=== PATIENT | female | born 1985 | race Caucasian/White ===

== ENCOUNTER → 2016-06-15 | Outpatient (CLI) | payer MEDICAID ==
--- NOTE | 2016-06-06 14:45 | US ---
EXAMINATION TYPE: US OB >= 14 wk fetus DATE OF EXAM: 06/06/2016 2:31 PM COMPARISON: Previous study dated 02/25/2014. HISTORY: LGA TECHNIQUE: Transabdominal (TA) EXAM MEASUREMENTS: GESTATIONAL AGE / DATING Physician Established: (36 weeks/0 days) EDC: 07/04/16 Dates by LMP: (36 weeks/0 days) EDC: 07/04/16 Dates by First Scan: (36 weeks/6 days) EDC: 06/28/16 Dates by Current Scan for: (36 weeks/3 days) EDC: 07/01/16 SURVEY IUP: Single PLACENTA: Anterior PREVIA: No previa NAVIN: 15.6 cm Normal CERVICAL LENGTH (transabdominal: norm > 3.0cm): 4.7 cm BIOMETRY PRESENTATION: Vertex LIE: Longitudinal BPD: 8.9 cm 36 weeks / 1 days HC: 32.0 cm 36 weeks / 1 days AC: 32.6 cm 36 weeks / 4 days FL: 7.1 cm 36 weeks / 3 days ESTIMATED WEIGHT IN GRAMS: 2921 grams ESTIMATED WEIGHT IN LBS/OZS: 6 lbs. 7 oz. WEIGHT PERCENTAGE BASED ON ESTABLISHED DATE: 62 % HC/AC: 0.98 Normal FL/AC: 22% Normal HEART RATE: 134 bpm RHYTHM: Normal TECHNOLOGIST IMPRESSION: Single viable IUP 36wks/3days with RAFITA of 07/01/16 No anatomic survey was performed. IMPRESSION: Gomez fetus present in a vertex lie with a gestational age of 36 weeks 3 days +/- 3 weeks. Estim ated date of confinement based on this examination is 07/01/2016.
--- NOTE | 2016-06-16 08:50 | US ---
EXAMINATION TYPE: US OB Call Back DATE OF EXAM: 06/15/2016 1:34 PM COMPARISON: prior scans in pacs, last one 1 week ago CLINICAL HISTORY: o36.63xo LGA. Here to look at anatomy only, no complaints per pt GESTATIONAL AGE / DATING Dates by Initial Survey Scan: (37 weeks/5 days) EDC: 07/01/2016 HEART RATE: 126 bpm RHYTHM: Normal ANATOMY SEEN (second anatomic survey look): Choroid Plexus (bilateral): Midline Falx: Four Chamber Heart: Outflow tracts:? LVOT/RVOT Stomach: Situs: Nose / Lips: Diaphragm : Kidneys (bilateral): Bladder: Three Vessel Cord: Longitudinal Spine: Transverse Spine: ANATOMY STILL NOT SEEN: due to advanced age and lie Lateral Vent (< 1 cm): Cisterna Magna (< 1.1 cm): Cerebellum: Cord Insert : Arms (bilateral): Legs (bilateral): Cavus Septi Pellucidi: TECHNOLOGIST IMPRESSION: some exam limitations due to advanced age and lie, visualized structu res appear wnl IMPRESSION: Gomez fetus present in a vertex lie with a gestational age of 37 weeks 5 days +/- 3 weeks. Estima paolo date of confinement based on this examination is 07/01/2016. Please note that the morphologic examination is still limited.
== END | disposition home or self-care (01) ==
LOC: RADUSWWP 06-06 13:32
PROVIDERS: ATTEND Obstetrics & Gynecology
DX: O36.63X0 Maternal care for excessive fetal growth, third trimester, not applicable or unspecified (principal); Z3A.36 36 weeks gestation of pregnancy
CPT/HCPCS: 76805

== ENCOUNTER 2016-06-29 08:23 | Inpatient (IN) | payer MEDICAID ==
[2016-06-29] MEDS ORDERED: TERBUTALINE 1 MG/ML VIAL SQ PRN (10:22)
[2016-06-29] MEDS ORDERED: OXYTOCIN 10 UNIT/ML 1 ML VIAL IM PRN (10:22)
[2016-06-29] MEDS ORDERED: LIDOCAINE 1% (PF) 10 MG/ML (30 ML SDV) SQ PRN (10:22)
[2016-06-29] MEDS ORDERED: CARBOPROST TROMETHAMINE 250 MCG/ML 1 ML AMP IM PRN (10:22)
[2016-06-29] MEDS ORDERED: METHYLERGONOVINE 0.2 MG/ML 1 ML AMP IM PRN (10:22)
[2016-06-29] MEDS ORDERED: LACTATED RINGERS 1,000 ML IV SCH ×2 (10:30)
[2016-06-29] MEDS ORDERED: OXYTOCIN 30 UNITS/500 ML NS 30 UNIT in SALINE 1 500ML.BAG IV SCH (10:30)
[2016-06-29 11:04] VITALS: BMI 26.9
[2016-06-29 11:18] LABS: Basophils # (A) 0.1 k/uL (0-0.2); Basophils % (A) 1 %; CH 32.3; CHCM 34.8; Eosinophils # (A) 0.2 k/uL (0-0.7); Eosinophils % (A) 2 %; HCT 36.2 % (34.0-46.0); HDW 2.92; HGB 12.8 gm/dL (11.4-16.0); Luc # (Auto) 0.25; Luc % (Auto) 3; Lymphocytes # (A) 1.4 k/uL (1.0-4.8); Lymphocytes % (A) 16 %; MCH 32.9 pg (25.0-35.0); MCHC 35.3 g/dL (31.0-37.0); MCV 93.2 fL (80.0-100.0); Mean Platelet Volume 9.7; Monocytes # (A) 0.4 k/uL (0-1.0); Monocytes % (A) 5 %; Neutrophils # (A) 6.4 k/uL (1.3-7.7); Neutrophils % (A) 74 %; RBC 3.88 m/uL (3.80-5.40); RDW 12.9 % (11.5-15.5); WBC 8.7 k/uL (3.8-10.6); WBC (Perox) 8.84
--- NOTE | 2016-06-29 12:17 | P.HPOB ---
History of Present Illness H&P Date: 06/29/16 Chief Complaint: Leaking of fluid. This patient is a pleasant 30-year-old 4 para 2 female estimated date of confinement 07/04/2016 estimated gestational age 39-2/7 weeks who presents to labor and delivery with complaint of gush of fluid at 6:30 this morning and contractions thereafter. Patient's care has been uncomplicated. Review of Systems Constitutional: Denies chills, Denies fever Ears, nose, mouth and throat: Denies headache, Denies sore throat Cardiovascular: Denies chest pain, Denies shortness of breath Respiratory: Denies cough Gastrointestinal: Reports heartburn Genitourinary: Reports Menstruation: Reports amenorrhea Musculoskeletal: Denies myalgias Integumentary: Denies pruritus, Denies rash Neurological: Denies numbness, Denies weakness Psychiatric: Denies anxiety, Denies depression Endocrine: Denies fatigue, Denies weight change Past Medical History Past Medical History: Mitral Valve Prolapse (MVP) History of Any Multi-Drug Resistant Organisms: None Reported Additional Past Surgical History / Comment(s): Sarah Ann teeth 2010, dilation and curettage. Past Anesthesia/Blood Transfusion Reactions: No Reported Reaction Past Psychological History: No Psychological Hx Reported Smoking Status: Never smoker Past Alcohol Use History: None Reported Past Drug Use History: None Reported - Past Family History Father Family Medical History: Hypertension Mother Family Medical History: Thyroid Disorder Medications and Allergies Home Medications Medication Instructions Recorded Confirmed Type Pnv #14/Ferrous Fum/Folic Acid 1 tab PO DAILY 12/11/15 12/11/15 History [Completenate Tablet Chew] Calcium Carbonate [Tums] 500 mg PO TID 06/29/16 06/29/16 History Allergies Allergy/AdvReac Type Severity Reaction Status Date / Time iodine Allergy Anaphylaxis Verified 12/11/15 10:00 shellfish derived [Shellfish] Allergy Anaphylaxis Verified 12/11/15 10:00 Exam - Vital Signs Vital signs: Vital Signs Temp Pulse Resp BP Pulse Ox 06/29/16 08:55 98.2 F 98 18 117/81 98 Intake and Output 06/28/16 06/29/16 06/29/16 22:59 06:59 14:59 Other: Weight 75.75 kg Patient Weight 06/30/16 06:59 Weight 75.75 kg - OBG Physical Exam Abdomen: bowel sounds normal, no diffuse tenderness, no bruit present, no guarding noted, no hepatomegaly, no splenomegaly, no mass Vulva: both: normal Cervix: no lesion (Cervix is 3-4 cm 80% effaced and -1 station with gross rupture membranes), no discharge Uterus: enlarged (Fundal height is 39 cm) Results blood work shows she is O-, rubella immune, RPR is nonreactive, HIV is nonreactive, hepatitis B is negative, Glucola was normal, group B strep was negative, ultrasounds have been normal, patient received RhoGAM on 04/08/2016. Result Diagrams: 06/29/16 09:00 Assessment and Plan (1) Spontaneous rupture of membranes Status: Acute (2) Normal labor Narrative/Plan: This is a pleasant 30-year-old 4 para 2 female 39-2/7 weeks gestation with spontaneous rupture membranes in active labor. Plan is anticipate normal spontaneous vaginal delivery. Status: Acute (3) Rh negative, maternal Status: Acute
[2016-06-29] MEDS ORDERED: Acetaminophen-Codeine 300-30mg TAB PO PRN ×2 (14:38)
[2016-06-29] MEDS ORDERED: Rhogam IMMUNE GLOBULIN 1,500 UNIT/1 ML IM ONE (14:38)
[2016-06-29] MEDS ORDERED: HYDROCORTISONE 2.5% RECTAL CREAM 30 GM TUBE RECTAL PRN (14:38)
[2016-06-29] MEDS ORDERED: ZOLPIDEM 5 MG TAB PO PRN (14:38)
[2016-06-29] MEDS ORDERED: BENZOCAINE/MENTHOL SPRAY 1 GM/SPRAY AEROSOL TOPICAL PRN (14:38)
[2016-06-29] MEDS ORDERED: WITCH HAZEL 1 EACH MED..PAD TOPICAL PRN (14:38)
[2016-06-29] MEDS ORDERED: diphenhydrAMINE 50 MG/ML 1 ML VIAL IVP PRN (14:38)
[2016-06-29] MEDS ORDERED: BISACODYL 10 MG SUPP RECTAL PRN (14:38)
[2016-06-29] MEDS ORDERED: SIMETHICONE 80 MG CHEWABLE PO PRN (14:38)
[2016-06-29] MEDS ORDERED: diphenhydrAMINE 25 MG CAP PO PRN (14:38)
[2016-06-29] MEDS ORDERED: LANOLIN CREAM 5 GM TUBE TOPICAL PRN (14:38)
[2016-06-29] MEDS ORDERED: ACETAMINOPHEN TAB 325 MG TAB PO PRN (14:38)
--- NOTE | 2016-06-29 17:47 | P.PROBDLV ---
Vaginal Delivery Note - . Vaginal Delivery Note: Normal spontaneous vaginal delivery viable female infant Apgars 9 and 9 delivery time is 1358 hrs. Please see dictated H&P for intimate details of this patient's admission. Brief summary this is a pleasant 30-year-old 4 para 2 female 39-2/7 weeks gestation who is admitted to labor and delivery in spontaneous rupture membranes in active laborpatient has not received anything for pain control quickly progresses to complete. Patient pushes the head to the perineum the posterior perineum is supported and we have controlled delivery of the 's head over the intact perineum. Mouth and nares are bulb suctioned. There was a hand presenting with the posterior shoulder with gentle downward traction we have delivery the anterior posterior shoulder and rest this infant' s body. This is a vigorous viable female infant Apgars are 9 and 9 delivery time is 1358 hrs. has spontaneous respiration and good cry and grossly appears normal. After delivery of the the umbilical cords doubly clamped and cut appears to be trivascular. Placenta spontaneously delivered intact. Estimated blood loss is 100 mL. Posterior perineum shows a first- degree laceration that is repaired with 3-0 Vicryl in the usual fashion in good reapproximation is noted. No complications. and mother are stable in delivery room. Cord blood was obtained for Rh status.
[2016-06-29] MEDS: IBUPROFEN 600 MG TAB PO PRN (19:40)
[2016-06-29] MEDS: SENNOSIDES-DOCUSATE SODIUM 1 EACH TAB PO SCH (19:40)
[2016-06-29] MEDS: OXYTOCIN 30 UNITS/500 ML NS 30 UNIT in SALINE 1 500ML.BAG IV SCH (19:55)
[2016-06-30 01:41] VITALS: RESP 16
--- NOTE | 2016-06-30 06:01 | P.PNOBGVD ---
Subjective - Subjective Patient reports: Reports appetite normal, Reports voiding normally, Reports pain well controlled, Reports ambulating normally : doing well Objective - Latest Vital Signs Latest vital signs: Vital Signs Temp Pulse Resp BP Pulse Ox 06/30/16 04:00 97.9 F 79 16 110/70 06/30/16 00:00 97.1 F L 71 16 101/67 06/29/16 19:50 98.4 F 82 14 125/81 06/29/16 16:09 98.6 F 82 16 128/74 06/29/16 15:39 98.7 F 86 16 120/60 06/29/16 15:09 97.9 F 75 16 122/65 06/29/16 14:54 93 40 H 129/72 06/29/16 14:39 77 18 126/77 06/29/16 14:25 94 18 124/78 06/29/16 14:10 97.6 F 81 18 118/56 06/29/16 08:55 98.2 F 98 18 117/81 98 Intake and Output 06/29/16 06/29/16 06/30/16 14:59 22:59 06:59 Intake Total 370 Output Total 100 Balance 270 Intake: IV 120 Intake, IV Titration 250 Amount Oxytocin 30 Units/500 ml 250 Ns 30 unit In Saline 1 500ml.bag @ 120 MILLIUNIT /MIN 120 mls/hr IV . Q4H10M [facility] Rx#:[id number] Output: Estimated Blood Loss 100 Other: # Voids 1 1 Weight 75.75 kg Patient Weight 06/30/16 06:59 Weight 75.75 kg - Exam Lungs: bilateral: normal Chest: Normal S1, Normal S2 Extremities: Present: normal Abdomen: Present: normal appearance, soft Uterus: Present: normal, firm Assessment and Plan (1) Spontaneous rupture of membranes Narrative/Plan: day #1. Patient is resting without complaints. Vital signs are stable she is afebrile. Is firm nontender she's having normal lochia. My impression is a normal course. Plan is to continue routine care patient wishes to go home tomorrow. Current Visit: No Status: Acute Code(s): WDX3921 - SNOMED Code(s): 986258949 (2) Normal labor Current Visit: Yes Status: Acute Code(s): O80 - ENCOUNTER FOR FULL-TERM UNCOMPLICATED DELIVERY; Z37.9 - OUTCOME OF DELIVERY, UNSPECIFIED SNOMED Code(s ): 61930510 (3) Rh negative, maternal Current Visit: No Status: Acute Code(s): O09.899 - SUPERVISION OF OTHER HIGH RISK PREGNANCIES, UNSP TRIMESTER SNOMED Code(s): 334506843
[2016-06-30] MEDS: IBUPROFEN 600 MG TAB PO PRN ×2 (06:04→19:23)
[2016-06-30] MEDS: SENNOSIDES-DOCUSATE SODIUM 1 EACH TAB PO SCH ×2 (12:45→19:23)
--- NOTE | 2016-07-01 05:52 | P.PNOBGVD ---
Subjective - Subjective Patient reports: Reports appetite normal, Reports voiding normally, Reports pain well controlled, Reports ambulating normally : doing well Objective - Latest Vital Signs Latest vital signs: Vital Signs Temp Pulse Resp BP 07/01/16 00:00 98.1 F 72 16 100/66 06/30/16 15:52 98.2 F 81 16 134/80 06/30/16 08:00 98.1 F 78 16 120/70 - Exam Lungs: bilateral: normal Chest: Normal S1, Normal S2 Extremities: Present: normal Abdomen: Present: normal appearance, soft Uterus: Present: normal, firm Assessment and Plan (1) Spontaneous rupture of membranes Narrative/Plan: day #2. Patient is resting without complaints. Vital signs are stable she is afebrile. Uterus is firm nontender she's having normal lochia. My impression is a normal course. Plan is to continue routine care and discharge home today Current Visit: No Status: Acute Code(s): ATY6945 - SNOMED Code(s): 632835253 (2) Normal labor Current Visit: Yes Status: Acute Code(s): O80 - ENCOUNTER FOR FULL-TERM UNCOMPLICATED DELIVERY; Z37.9 - OUTCOME OF DELIVERY, UNSPECIFIED SNOMED Code(s ): 46788597 (3) Rh negative, maternal Current Visit: No Status: Acute Code(s): O09.899 - SUPERVISION OF OTHER HIGH RISK PREGNANCIES, UNSP TRIMESTER SNOMED Code(s): 782324135
--- NOTE | 2016-07-01 05:56 | P.DS ---
Providers Date of admission: 06/29/16 08:23 Expected date of discharge: 07/01/16 Attending physician: Raghav Kennedy - Discharge Diagnosis(es) (1) Spontaneous rupture of membranes Current Visit: No Status: Acute (2) Normal labor Current Visit: Yes Status: Acute (3) Rh negative, maternal Current Visit: No Status: Acute Hospital Course: Please see dictated H&P for intimate details of this patient's admission. Brief summary this is a pleasant 30-year-old 4 para 2 female 39-2/7 weeks gestation who presents to labor and delivery spontaneous rupture membranes in active labor. Patient quickly goes on have a vaginal delivery viable female infant. Please see dictated delivery note. day #2 she is felt be stable for discharge home follow up with me in 6 weeks. Procedures: Normal spontaneous vaginal delivery Patient Condition at Discharge: Good Plan - Discharge Summary New Discharge Prescriptions: Acetaminophen-Codeine 300-30mg [Tylenol w/codeine #3] 1 - 2 each PO Q4HR PRN # 30 tab PRN Reason: Mild Pain exceeding Tylenol Ibuprofen [Motrin] 600 mg PO Q6HR PRN #40 tab PRN Reason: Mild Pain Or Fever >= 100.5 Discharge Medication List Pnv #14/Ferrous Fum/Folic Acid [Completenate Tablet Chew] 1 tab PO DAILY [History] Calcium Carbonate [Tums] 500 mg PO TID 06/29/16 [History] Acetaminophen-Codeine 300-30mg [Tylenol w/codeine #3] 1 - 2 each PO Q4HR PRN # 30 tab 06/30/16 [Rx] Ibuprofen [Motrin] 600 mg PO Q6HR PRN #40 tab 06/30/16 [Rx] Follow up Appointment(s)/Referral(s): Raghav Kennedy MD [STAFF PHYSICIAN] - 08/16/16 9:15 am Patient Instructions/Handouts: Vaginal Delivery (DC) Activity/Diet/Wound Care/Special Instructions: No intercourse or anything per vagina for 6 weeks. Please call if any fever, chills, excessive vaginal bleeding, and/or abdominal pain. Discharge Disposition: HOME SELF-CARE
[2016-07-01] MEDS: SENNOSIDES-DOCUSATE SODIUM 1 EACH TAB PO SCH (08:03)
[2016-07-01 09:35] VITALS: BP 122/73; PULSE 85; TEMP 97.4
== END 2016-07-01 13:39 | disposition home or self-care (01) | DRG 775 ==
LOC: 4FBP 08:23
PROVIDERS: ADMIT Obstetrics & Gynecology; ATTEND Obstetrics & Gynecology
PROC: 10E0XZZ Delivery of Products of Conception, External Approach (ICD-10-PCS; principal; 2016-06-29)
PROC: 0HQ9XZZ Repair Perineum Skin, External Approach (ICD-10-PCS; principal; 2016-06-29)
DX: O70.0 First degree perineal laceration during delivery (principal); Z37.0 Single live birth; Z3A.39 39 weeks gestation of pregnancy
CPT/HCPCS: 85025; 85461; 88307

== ENCOUNTER → 2017-11-17 | Outpatient (CLI) | payer MEDICAID ==
[2017-11-17 14:48] LABS: HCT 37.4 % (34.0-46.0); HGB 12.4 gm/dL (11.4-16.0); MCH 30.7 pg (25.0-35.0); MCHC 33.1 g/dL (31.0-37.0); MCV 92.8 fL (80.0-100.0); Mean Platelet Volume 6.8; Platelet Count 261 k/uL (150-450); RBC 4.03 m/uL (3.80-5.40); RDW 12.5 % (11.5-15.5); WBC 7.3 k/uL (3.8-10.6)
[2017-11-17 14:59] LABS: Glucose 82 mg/dL (74-99)
[2017-11-17 20:47] LABS: HIV AB P24 Non-Reactive (Non-Reactive); HIV P24 AG Non-Reactive (Non-Reactive)
--- NOTE | 2017-11-18 16:15 | US ---
EXAMINATION TYPE: US OB anatomy transabd DATE OF EXAM: 11/17/2017 COMPARISON: NONE HISTORY: O36.5920 SMALL FOR DATES ANATOMY SCAN TECHNIQUE: OBTA EXAM MEASUREMENTS: GESTATIONAL AGE / DATING Physician Established: (18 weeks/6 days) EDC: 04/14/2018 Dates by LMP: unknown Dates by First Scan: WAREHOUSE DISTRIBUTION SPECIALIST Dates by Current Scan for: (18 weeks/6 days) EDC: 04/14/2018 SURVEY IUP: Single PLACENTA: Posterior PREVIA: No previa NAVIN: 15.3 cm CERVICAL LENGTH (transabdominal: norm > 3.0cm): 3.5 cm BIOMETRY PRESENTATION: Breech LIE: Longitudinal BPD: 4.3 cm 19 weeks / 1 days HC: 16.3 cm 19 weeks / 1 days AC: 12.0 cm 17 weeks / 5 days FL: 3.0 cm 19 weeks / 2 days ESTIMATED WEIGHT IN GRAMS: 244 grams ESTIMATED WEIGHT IN LBS/OZ: 0 lbs. 9 oz. WEIGHT PERCENTAGE BASED ON ESTABLISHED DATE: 27 % HC/AC: 1.4 Normal FL/AC: 25 Normal HEART RATE: 158 bpm RHYTHM: Normal ANATOMY SEEN (within normal limits): * Lateral Vent (< 1 cm) 0.8 cm * Cisterna Magna (< 1.1 cm) 0.3 cm * Nuchal Fold (< 0.6 cm) 0.3 cm * Cerebellum (varies with age) 1.9 cm Choroid Plexus (bilateral) Midline Falx Cavus Septi Pellucidi Four Chamber Heart Outflow tracts: LVOT/RVOT Stomach Situs Nose / Lips Diaphragm Kidneys (bilateral) Bladder Cord Insert Arms (bilateral) Legs (bilateral) ANATOMY NOT SEEN: (OB call back for images) Three Vessel Cord - fetus very active Longitudinal Spine - spine down Transverse Spine - spine down IMPRESSION: Single live intrauterine with a sonographic age of 18 weeks and 6 days and mirtha mated date of delivery of 04/14/2018, concordant with menstrual age. Some anatomy was not visualized on today's examination and therefore callback examination will be scheduled.
== END | disposition home or self-care (01) ==
LOC: RADUSWWP 13:31
PROVIDERS: ATTEND Obstetrics & Gynecology
DX: O36.5920 Maternal care for other known or suspected poor fetal growth, second trimester, not applicable or unspecified (principal); O26.812 Pregnancy related exhaustion and fatigue, second trimester; Z91.013 Allergy to seafood; Z3A.18 18 weeks gestation of pregnancy
CPT/HCPCS: 36415; 76811; 82565; 82947; 85027; 86762; 86780; 86850; 86900; 86901; 87340; 87390

== ENCOUNTER → 2018-01-04 | Outpatient (CLI) | payer MEDICAID ==
[2018-01-04 09:03] LABS: HCT 37.9 % (34.0-46.0); HGB 12.7 gm/dL (11.4-16.0); MCH 32.4 pg (25.0-35.0); MCHC 33.6 g/dL (31.0-37.0); MCV 96.4 fL (80.0-100.0); Platelet Count 241 k/uL (150-450); RBC 3.93 m/uL (3.80-5.40); RDW 12.7 % (11.5-15.5); WBC 7.3 k/uL (3.8-10.6)
== END ==
LOC: LABWHC1 07:29
PROVIDERS: ATTEND Obstetrics & Gynecology
DX: Z34.82 Encounter for supervision of other normal pregnancy, second trimester (principal); Z3A.00 Weeks of gestation of pregnancy not specified
CPT/HCPCS: 36415; 82950; 85027; 86850

== ENCOUNTER 2018-02-12 10:01 | Outpatient (CLI) | payer MEDICAID ==
[2018-02-12 11:11] VITALS: BP 101/61; PULSE 101; RESP 18; TEMP 97.7
[2018-02-12 11:44] LABS: Amorphous Sediment,Urine Occasional /hpf; Appearance,Urine Turbid (Clear); Bilirubin,Urine Negative (Negative); Blood,Urine Negative (Negative); Color,Urine Yellow; Glucose,Urine (UA) Negative (Negative); Ketones,Urine Negative (Negative); Leukocyte Esterase,Urine Trace (Negative); Mucus,Urine Occasional /hpf; Nitrite,Urine Negative (Negative); PH, Urine 7.5 (5.0-8.0); Protein,Urine 1+ (Negative); Specific Gravity,Urine 1.017 (1.001-1.035); Squamous Epithelial Cell,Urine 42 /hpf (0-4); Urobilinogen,Urine <2.0 mg/dL (<2.0); WBC,Urine 4 /hpf (0-5)
[2018-02-12 11:52] LABS: Basophils % (A) 0 %; Eosinophils # (A) 0.2 k/uL (0-0.7); Eosinophils % (A) 3 %; HCT 34.2 % (34.0-46.0); HGB 11.9 gm/dL (11.4-16.0); Lymphocytes # (A) 1.3 k/uL (1.0-4.8); Lymphocytes % (A) 15 %; MCH 33.2 pg (25.0-35.0); MCHC 34.8 g/dL (31.0-37.0); MCV 95.3 fL (80.0-100.0); Mean Platelet Volume 7.2; Monocytes # (A) 0.4 k/uL (0-1.0); Monocytes % (A) 5 %; Neutrophils # (A) 6.3 k/uL (1.3-7.7); Neutrophils % (A) 75 %; Platelet Count 242 k/uL (150-450); RBC 3.59 m/uL (3.80-5.40); RDW 12.5 % (11.5-15.5); WBC 8.5 k/uL (3.8-10.6)
--- NOTE | 2018-02-13 06:22 | P.MSEPDOC ---
Presenting Problems - Arrival Data Date of Arrival on Unit: 02/12/18 Time of Arrival on Unit: 10:01 Mode of Transport: Ambulatory - Complaint OB-Reason for Admission/Chief Complaint: Dizziness Medical History - Information : 5 Para: 3 Term: 3 : 0 Abortions: Spontaneous or Elective: 1 Number of Living Children: 3 - Gestational Age Gestational Age by RAFITA (wks/days): 31 Weeks and 2 Days Review of Systems - Review of Systems Constitutional: Fatigue Breast: No problems ENT: No problems Cardiovascular: No problems Respiratory: No problems Gastrointestinal: No problems Genitourinary: No problems Musculoskeletal: No problems Neurological: No problems Skin: No problems Comment: Reports feeling dizzy and frequently yawning Vital Signs - Temperature Temperature: 97.7 F Temperature Source: Temporal Artery Scan - Pulse Right Brachial Pulse Rate: 101 Pulse Assessment Method: Automatic Cuff - Respirations Respiratory Rate: 18 Oxygen Delivery Method: Room Air - Blood Pressure Right Arm Blood Pressure: 101/61 Blood Pressure Mean: 74 Blood Pressure Source: Automatic Cuff Medical Screen Scoring (Pre) - Cervical Exam Dilation: Exam Deferred Effacement: Exam Deferred - Uterine Contractions Frequency: N/A Duration: N/A Intensity: N/A - Maternal Vital Signs Maternal Temperature: N/A Maternal Blood Pressure: N/A Signs of Preeclampsia: N/A Maternal Respirations: N/A - Pain Assessment Pain Scale Used: Numeric (1 - 10) Pain Intensity: 0 - Maternal Trauma Maternal Trauma: N/A - Assessment Baseline FHR: 140 Heart Rate - NICHD Category: Category I (Normal) = 0 NST: Reactive Position: N/A Station: N/A - Total Score Total Score (Pre): 0 - Level of Risk Level of Risk: Low (0-5) Physician Notification (Pre) - Physician Notified Physician Notified Date: 02/12/18 Physician Notified Time: 10:40 Physician/Practitioner Notifed:: Brent Spoke With: Brent Colon Order Received: Yes - Notification Comment Comment: Order received for CBC and UA Medical Screen Scoring (Post) - Uterine Contractions Frequency: N/A Duration: N/A Intensity: N/A - Maternal Vital Signs Maternal Temperature: N/A Maternal Blood Pressure: N/A Signs of Preeclampsia: N/A Maternal Respirations: N/A - Assessment Heart Rate: 140 Heart Rate - NICHD Category: Category I (Normal) = 0 NST: Reactive Position: N/A Station: N/A - Total Score Total Score (Post): 0 - Post Treatment Level of Risk Post Treatment Level of Risk: Low (0-5) Physician Notification (Post) - Physician Notified Physician Notified Date: 02/12/18 Physician Notified Time: 12:08 Physician/Practitioner Notified:: Brent Spoke With: Brent New Order Received: Yes - Notification Comment Comment: Spk c\Dr. Kennedy, reviewed labs, states to d/c home, edu to increase PO fluid, follow up at next scheduled appt. Disposition - Disposition OB Disposition: Discharge to home, Written follow up instructions reviewed Discharge Date: 02/12/18 Discharge Time: 12:15 I agree with the RN Medical Screening Exam: Yes Risk & Benefit of care provided described in d/c instruction: Yes Diagnosis: DEHYDRATION
== END 2018-02-12 12:15 | disposition home or self-care (01) ==
LOC: FBPOP 10:01
PROVIDERS: ATTEND Obstetrics & Gynecology
DX: O99.283 Endocrine, nutritional and metabolic diseases complicating pregnancy, third trimester (principal); E86.0 Dehydration; Z3A.31 31 weeks gestation of pregnancy
CPT/HCPCS: 59025; 81001; 85025; 99213

== ENCOUNTER → 2018-03-12 | Outpatient (CLI) | payer MEDICAID ==
--- NOTE | 2018-03-12 15:51 | US ---
EXAMINATION TYPE: US OB >= 14 wk fetus DATE OF EXAM: 03/12/2018 COMPARISON: 11/17/2017 CLINICAL HISTORY: 32-year-old female O36.63X0 Third trimester large for date. TECHNIQUE: Transabdominal (TA) FINDINGS: GESTATIONAL AGE / DATING Physician Established: (35 weeks/2 days) EDC: 04/14/2018 Dates by LMP: Unknown Dates by First Scan: (35 weeks/2 days) EDC: 04/14/2018 Dates by Current Scan: (35 weeks/0 days) EDC: 04/16/2018 SURVEY IUP: Single PLACENTA: Posterior PREVIA: No Previa NAVIN: 11.0 cm Normal CERVICAL LENGTH (transabdominal: norm > 3.0cm): 3.9 cm BIOMETRY PRESENTATION: Vertex BPD: 8.6 cm 34 weeks / 4 days HC: 31.0 cm 34 weeks / 4 days AC: 31.5 cm 35 weeks / 3 days FL: 6.9 cm 35 weeks / 4 days ESTIMATED WEIGHT IN GRAMS: 2636 grams ESTIMATED WEIGHT IN LBS/OZ: 5 lbs. 13 oz. WEIGHT PERCENTAGE BASED ON ESTABLISHED DATES: 48% open (versus 27th percentile on 11/17/2017 and 62n d percentile on 06/06/2016) HC/AC: 0.98 Normal FL/AC: 21.98 Normal HEART RATE: 133 bpm RHYTHM: Normal Visual Specialist notes: Viable single IUP measuring 35 weeks 0 days with a heart rate of 133bpm and an est imated delivery date of 04/16/2018. IMPRESSION: 1. Single live intrauterine with established gestational age of 35 weeks 2 days by dating s can. Current ultrasound biometry is concordant (35 weeks 0 days). 2. EFW percentile is at 48%.
== END | disposition home or self-care (01) ==
LOC: RADUSWWP 12:15
PROVIDERS: ATTEND Obstetrics & Gynecology
DX: O36.63X0 Maternal care for excessive fetal growth, third trimester, not applicable or unspecified (principal); Z3A.35 35 weeks gestation of pregnancy
CPT/HCPCS: 76805

== ENCOUNTER 2018-04-13 09:09 | Outpatient (CLI) | payer MEDICAID ==
--- NOTE | 2018-04-23 20:14 | P.MSEPDOC ---
Presenting Problems - Arrival Data Date of Arrival on Unit: 04/13/18 Time of Arrival on Unit: 09:10 Mode of Transport: Ambulatory - Complaint OB-Reason for Admission/Chief Complaint: NST Comment: written order for nst's for post dates by Dr. Kennedy, Physician Notification (Pre) - Physician Notified Physician Notified Date: 04/13/18 Physician Notified Time: 09:55 Physician/Practitioner Notifed:: Dr. Kennedy Spoke With: Dr. Kennedy - Notification Comment Comment: Notifed Dr. Ag of single variable with contraction with heart rate down to 90, otherwise reactive nst, may discharge pt, Disposition - Disposition OB Disposition: Triage, Discharge to home, Written follow up instructions reviewed Discharge Date: 04/13/18 Discharge Time: 10:10 I agree with the RN Medical Screening Exam: Yes Risk & Benefit of care provided described in d/c instruction: Yes Diagnosis: 40 WEEKS GESTATION OF
== END 2018-04-13 10:10 | disposition home or self-care (01) ==
LOC: FBPOP 09:09
PROVIDERS: ATTEND Obstetrics & Gynecology
DX: O48.0 Post-term pregnancy (principal); Z3A.40 40 weeks gestation of pregnancy
CPT/HCPCS: 59025

== ENCOUNTER 2018-04-18 10:42 | Outpatient (CLI) | payer MEDICAID ==
[2018-04-18 11:22] VITALS: BP 117/77; PULSE 86; RESP 16; TEMP 98
--- NOTE | 2018-05-10 18:06 | P.MSEPDOC ---
Presenting Problems - Arrival Data Date of Arrival on Unit: 04/18/18 Time of Arrival on Unit: 10:48 Mode of Transport: Ambulatory - Complaint OB-Reason for Admission/Chief Complaint: NST Medical History - Information : 5 Para: 3 - Gestational Age Gestational Age by RAFITA (wks/days): 40 Weeks and 4 Days Review of Systems - Review of Systems Constitutional: No problems Breast: No problems ENT: No problems Cardiovascular: No problems Respiratory: No problems Gastrointestinal: No problems Genitourinary: No problems Musculoskeletal: No problems Neurological: No problems Skin: No problems Vital Signs - Temperature Temperature: 98.0 F Temperature Source: Oral - Pulse Right Sitting Brachial Pulse Rate: 86 Pulse Assessment Method: Automatic Cuff - Respirations Respiratory Rate: 16 Oxygen Delivery Method: Room Air O2 Sat by Pulse Oximetry: 100 - Blood Pressure Right Arm Sitting Blood Pressure: 117/77 Blood Pressure Mean: 90 Blood Pressure Source: Automatic Cuff Medical Screen Scoring (Pre) - Cervical Exam Dilation: Exam Deferred Effacement: Exam Deferred Membranes: Intact - Uterine Contractions Frequency: N/A Duration: N/A Intensity: N/A - Maternal Vital Signs Maternal Temperature: N/A Maternal Blood Pressure: N/A Signs of Preeclampsia: N/A Maternal Respirations: N/A - Pain Assessment Pain Scale Used: Numeric (1 - 10) Pain Intensity: 0 - Maternal Trauma Maternal Trauma: N/A - Assessment Baseline FHR: 120 Heart Rate - NICHD Category: Category I (Normal) = 0 NST: Reactive Position: N/A Station: N/A - Total Score Total Score (Pre): 0 - Level of Risk Level of Risk: Low (0-5) Physician Notification (Pre) - Physician Notified Physician Notified Date: 04/18/18 Physician Notified Time: 11:15 Spoke With: Dr Kamara New Order Received: Yes (d/c pt home at this time) Disposition - Disposition OB Disposition: Discharge to home Discharge Date: 04/18/18 Discharge Time: 11:18 I agree with the RN Medical Screening Exam: Yes Risk & Benefit of care provided described in d/c instruction: Yes Diagnosis: RELATED CONDITIONS, UNSPECIFIED, THIRD TRIMESTER
== END 2018-04-18 11:18 | disposition home or self-care (01) ==
LOC: FBPOP 10:42
PROVIDERS: ATTEND Obstetrics & Gynecology
DX: O26.93 Pregnancy related conditions, unspecified, third trimester (principal); Z3A.40 40 weeks gestation of pregnancy
CPT/HCPCS: 59025

== ENCOUNTER → 2018-04-18 | Outpatient (CLI) | payer MEDICAID ==
--- NOTE | 2018-04-18 11:10 | US ---
EXAMINATION TYPE: US OB limited DATE OF EXAM: 04/18/2018 COMPARISON: Most recent ultrasound March 12, 2018 CLINICAL HISTORY: O48.0 Post-term . EXAM PERFORMED: Transabdominal (TA) GESTATIONAL AGE / DATING Physician Established: (40 weeks/4 days) EDC: 04/14/18 No growth performed on today?s study per ordering physician SURVEY NAVIN: 9.1 cm Ultrasound evidence of premature rupture of membranes? no HEART RATE: 139.0 bpm RHYTHM: Normal Limited OB ultrasound shows persistent live intrauterine gestation with normal cephalad presentation, calculated NAVIN remains within normal limits. IMPRESSION: As above
== END ==
LOC: RADUSWWP 10:02
PROVIDERS: ATTEND Obstetrics & Gynecology
DX: O48.0 Post-term pregnancy (principal); Z3A.00 Weeks of gestation of pregnancy not specified
CPT/HCPCS: 76815

== ENCOUNTER 2018-04-20 14:31 | Outpatient (CLI) | payer MEDICAID ==
[2018-04-20 16:29] VITALS: BP 128/77; PULSE 91; RESP 16; TEMP 98.8
--- NOTE | 2018-04-20 17:25 | US ---
EXAMINATION TYPE: US OB limited DATE OF EXAM: 04/20/2018 COMPARISON: NONE CLINICAL HISTORY: NAVIN . NAVIN, post dates EXAM PERFORMED: Transabdominal (TA) GESTATIONAL AGE / DATING Physician Established: (40 weeks/6 days) EDC: 04/14/18 Dates by Current Scan: ( weeks/ days) EDC: No growth performed on today?s study per ordering physician SURVEY NAVIN: 10.2 cm Normal Ultrasound evidence of premature rupture of membranes? no HEART RATE: 168 bpm RHYTHM: Normal IMPRESSION: Amniotic fluid is adequate. No evidence of oligohydramnios.
--- NOTE | 2018-04-22 07:36 | P.MSEPDOC ---
Presenting Problems - Arrival Data Date of Arrival on Unit: 04/20/18 Time of Arrival on Unit: 14:50 Mode of Transport: Portable - Complaint OB-Reason for Admission/Chief Complaint: NST Medical History - Information : 5 Para: 3 Term: 3 : 0 Abortions: Spontaneous or Elective: 1 Number of Living Children: 3 - Gestational Age Gestational Age by RAFITA (wks/days): 40 Weeks and 6 Days Review of Systems - Review of Systems Constitutional: No problems Breast: No problems ENT: No problems Cardiovascular: No problems Respiratory: No problems Gastrointestinal: No problems Genitourinary: No problems Musculoskeletal: No problems Neurological: No problems Skin: No problems Vital Signs - Temperature Temperature: 98.8 F Temperature Source: Oral - Pulse Sitting Pulse Rate: 91 Pulse Assessment Method: Automatic Cuff - Respirations Respiratory Rate: 16 Oxygen Delivery Method: Room Air - Blood Pressure Sitting Blood Pressure: 128/77 Blood Pressure Mean: 94 Blood Pressure Source: Automatic Cuff Medical Screen Scoring (Pre) - Cervical Exam Dilation: Exam Deferred - Uterine Contractions Frequency: N/A - Maternal Vital Signs Maternal Temperature: N/A Maternal Blood Pressure: N/A - Pain Assessment Pain Scale Used: Numeric (1 - 10) Pain Intensity: 0 Pain Management Goal: 0 Pain Radiation Location: 0 Pain Duration: 0 - Maternal Trauma Maternal Trauma: N/A - Assessment Baseline FHR: 130 Heart Rate - NICHD Category: Category I (Normal) = 0 NST: Reactive Position: N/A - Total Score Total Score (Pre): 0 - Level of Risk Level of Risk: Low (0-5) Physician Notification (Pre) - Physician Notified Physician Notified Date: 04/20/18 Physician Notified Time: 16:28 Physician/Practitioner Notifed:: dr veliz New Order Received: Yes - Notification Comment Comment: PT TO BE DISCHARGED HOME IF NAVIN IS OVER 6 PT NAVIN IS 10 AFTER ULTRASOUND Disposition - Disposition OB Disposition: Discharge to home Discharge Date: 04/20/18 Discharge Time: 16:29 I agree with the RN Medical Screening Exam: Yes Risk & Benefit of care provided described in d/c instruction: Yes Diagnosis: POST-TERM
== END 2018-04-20 16:30 | disposition home or self-care (01) ==
LOC: FBPOP 14:31
PROVIDERS: ATTEND Obstetrics & Gynecology
DX: O48.0 Post-term pregnancy (principal); Z3A.40 40 weeks gestation of pregnancy
CPT/HCPCS: 59025; 76815; 99213

== ENCOUNTER 2018-04-23 11:40 | Inpatient (IN) | payer MEDICAID ==
[2018-04-23] MEDS ORDERED: TERBUTALINE 1 MG/ML VIAL SQ PRN (12:28)
[2018-04-23] MEDS ORDERED: CARBOPROST TROMETHAMINE 250 MCG/ML 1 ML AMP IM PRN (12:28)
[2018-04-23] MEDS ORDERED: OXYTOCIN 10 UNIT/ML 1 ML VIAL IM PRN (12:28)
[2018-04-23] MEDS ORDERED: LIDOCAINE 0.5% (PF) 5 MG/ML (50 ML SDV) SQ PRN (12:28)
[2018-04-23] MEDS ORDERED: METHYLERGONOVINE 0.2 MG/ML 1 ML AMP IM PRN (12:28)
[2018-04-23] MEDS ORDERED: OXYTOCIN 20 UNITS/1000 ML NS 1,000 ML IV SCH ×2 (12:30→20:00)
[2018-04-23] MEDS ORDERED: LACTATED RINGERS 1,000 ML IV SCH (12:30)
[2018-04-23 12:52] LABS: Basophils % (A) 0 %; Eosinophils # (A) 0.3 k/uL (0-0.7); Eosinophils % (A) 2 %; HCT 41.7 % (34.0-46.0); HGB 14.4 gm/dL (11.4-16.0); Lymphocytes # (A) 1.6 k/uL (1.0-4.8); Lymphocytes % (A) 15 %; MCH 31.8 pg (25.0-35.0); MCHC 34.7 g/dL (31.0-37.0); MCV 91.8 fL (80.0-100.0); Mean Platelet Volume 7.8; Monocytes # (A) 0.6 k/uL (0-1.0); Monocytes % (A) 5 %; Neutrophils # (A) 8.2 k/uL (1.3-7.7); Neutrophils % (A) 75 %; Platelet Count 248 k/uL (150-450); RBC 4.54 m/uL (3.80-5.40); RDW 13.2 % (11.5-15.5)
[2018-04-23 13:15] VITALS: BMI 27.1
--- NOTE | 2018-04-23 13:31 | P.HPOB ---
History of Present Illness H&P Date: 04/23/18 Chief Complaint: Postdates an isolated variable on nonstress test This patient is a pleasant 32-year-old 5 para 3 female estimated date of confinement 04/14/2018 estimated gestational age 41-2/7 weeks who presented to labor and delivery for a postdates nonstress test. Patient's is such that she had her initial visit around 18 weeks and her dates were set at that time based on this ultrasound. Patient was scheduled for induction this following week and therefore was having routine testing including nonstress tests and fluid index. Apparently on Monday patient had a couple variable decelerations on nonstress testing fluid index was normal. Patient repairs and a today for follow-up NST so to have a variable deceleration on admission however is now reactive. Patient's having fairly regular contractions cervix is made change from the office therefore she thought to be in early labor. At this time I'm recommending she proceed with delivery due to her postdates and the deceleration on NST. care otherwise has been uncomplicated. Review of Systems Genitourinary: Reports Menstruation: Reports amenorrhea Past Medical History Past Medical History: Mitral Valve Prolapse (MVP) History of Any Multi-Drug Resistant Organisms: None Reported Additional Past Surgical History / Comment(s): [place] teeth 2010, dilation and curettage. Past Anesthesia/Blood Transfusion Reactions: No Reported Reaction Past Psychological History: No Psychological Hx Reported Smoking Status: Never smoker Past Alcohol Use History: None Reported Past Drug Use History: None Reported - Past Family History Father Family Medical History: Hypertension Mother Family Medical History: Thyroid Disorder Medications and Allergies Home Medications Medication Instructions Recorded Confirmed Type Vit 14/Iron Fum/Folic 1 tab PO DAILY 12/11/15 04/23/18 History [Completenate Tablet Chew] Calcium Carbonate [Tums] 500 mg PO TID 06/29/16 04/23/18 History Allergies Allergy/AdvReac Type Severity Reaction Status Date / Time iodine Allergy Anaphylaxis Verified 04/18/18 10:58 shellfish derived [Shellfish] Allergy Anaphylaxis Verified 04/18/18 10:58 Exam Vital Signs Temp Pulse Resp BP 04/23/18 11:53 98.0 F 92 18 120/85 Intake and Output 12/30/18 12/31/18 12/31/18 22:59 06:59 14:59 Other: Weight 76.204 kg - OBG Physical Exam Abdomen: bowel sounds normal, no diffuse tenderness, no bruit present, no guarding noted, no hepatomegaly, no splenomegaly, no mass Vulva: both: normal Vagina: normal moisture, no discharge Cervix: no lesion (Cervix is 3 cm 50% effaced -2 station.), no discharge Uterus: enlarged (Fundal height is 40 cm) Results blood work shows she is O-, rubella immune, RPR is nonreactive, hepatitis B was negative, HIV was nonreactive, patient did receive RhoGAM on . Growth ultrasound at 35 weeks was normal. Result Diagrams: 04/23/18 12:46 Abnormal Lab Results - Last 24 Hours (Table) 04/23/18 Range/Units 12:46 WBC 11.0 H (3.8-10.6) k/uL Neutrophils # 8.2 H (1.3-7.7) k/uL Assessment and Plan Assessment: This is a pleasant 32-year-old 5 para 3 female 41-2/7 weeks gestation who is admitted to labor and delivery with a isolated variable deceleration on nonstress testing but also appears to be in early labor. Discussed with the patient management and we are elected to proceed with delivery at this time. Plan is to proceed with artificial rupture membranes. Patient elective whole often Pitocin this time and I think this reasonable as long as she progresses in labor. At this time there is no evidence of maternal compromise and heart tones are reassuring. (1) Post term at 41 weeks gestation Current Visit: Yes Status: Acute Code(s): O48.0 - POST-TERM ; Z3A.41 - 41 WEEKS GESTATION OF SNOMED Code(s): 525864467
--- NOTE | 2018-04-23 13:36 | P.MSEPDOC ---
Presenting Problems - Arrival Data Date of Arrival on Unit: 04/23/18 Time of Arrival on Unit: 12:15 Mode of Transport: Ambulatory - Complaint OB-Reason for Admission/Chief Complaint: NST Medical History - Information : 5 Para: 3 Term: 2 : 0 Abortions: Spontaneous or Elective: 1 Number of Living Children: 3 - Gestational Age Gestational Age by RAFITA (wks/days): 41 Weeks and 2 Days Review of Systems - Review of Systems Constitutional: No problems Breast: No problems ENT: No problems Cardiovascular: No problems Respiratory: No problems Gastrointestinal: No problems Genitourinary: No problems Musculoskeletal: No problems Neurological: No problems Skin: No problems Vital Signs - Temperature Temperature: 98.0 F Temperature Source: Temporal Artery Scan - Pulse Right Sitting Brachial Pulse Rate: 92 Pulse Assessment Method: Automatic Cuff - Respirations Respiratory Rate: 18 Oxygen Delivery Method: Room Air - Blood Pressure Right Arm Sitting Blood Pressure: 120/85 Blood Pressure Mean: 96 Blood Pressure Source: Automatic Cuff Medical Screen Scoring (Pre) - Cervical Exam Dilation: 1-3 cm = 1 Effacement: More than 50% = 2 Membranes: Intact - Uterine Contractions Frequency: > 5 minutes apart = 1 Duration: > 40 seconds = 2 Intensity: N/A - Maternal Vital Signs Maternal Temperature: N/A Maternal Blood Pressure: N/A Signs of Preeclampsia: N/A Maternal Respirations: N/A - Pain Assessment Pain Intensity: 4 Pain Management Goal: 3 - Total Score Total Score (Pre): 6 Physician Notification (Pre) - Physician Notified Physician Notified Date: 04/23/18 Physician Notified Time: 12:30 Physician/Practitioner Notifed:: Dr Kennedy Spoke With: Dr Kennedy New Order Received: Yes - Notification Comment Comment: admit for labor Disposition - Disposition OB Disposition: Admit Transferred to:: st 11 Discharge Date: 04/23/18 Discharge Time: 12:40 I agree with the RN Medical Screening Exam: Yes Risk & Benefit of care provided described in d/c instruction: Yes Diagnosis: POST-TERM
[2018-04-23] MEDS ORDERED: ZOLPIDEM 5 MG TAB PO PRN (19:59)
[2018-04-23] MEDS ORDERED: HYDROCORTISONE 2.5% RECTAL CREAM 30 GM TUBE RECTAL PRN (19:59)
[2018-04-23] MEDS ORDERED: WITCH HAZEL 1 EACH MED..PAD TOPICAL PRN (19:59)
[2018-04-23] MEDS ORDERED: BISACODYL 10 MG SUPP RECTAL PRN (19:59)
[2018-04-23] MEDS ORDERED: ACETAMINOPHEN TAB 325 MG TAB PO PRN (19:59)
[2018-04-23] MEDS ORDERED: BENZOCAINE/MENTHOL SPRAY 1 GM/SPRAY AEROSOL TOPICAL PRN (19:59)
[2018-04-23] MEDS ORDERED: LANOLIN CREAM 5 GM TUBE TOPICAL PRN (19:59)
[2018-04-23] MEDS ORDERED: SIMETHICONE 80 MG CHEWABLE PO PRN (19:59)
[2018-04-23] MEDS ORDERED: diphenhydrAMINE 25 MG CAP PO PRN (19:59)
[2018-04-23] MEDS ORDERED: diphenhydrAMINE 50 MG/ML 1 ML VIAL IVP PRN (19:59)
[2018-04-23] MEDS ORDERED: Rhogam IMMUNE GLOBULIN 1,500 UNIT/1 ML IM ONE (19:59)
--- NOTE | 2018-04-23 20:07 | P.PROBDLV ---
Vaginal Delivery Note - . Vaginal Delivery Note: Normal spontaneous vaginal delivery viable female infant Apgars are 9 and 9 delivery time is 1942 hrs. Please see dictated H&P for intimate details of this patient's admission. In brief summary this is a pleasant 32-year-old 5 para 3 female 41-2/7 weeks gestation who presented to labor and delivery for nonstress test and was noted to have a variable deceleration and also having regular contractions. Patient's felt to be in early labor and has artificial rupture membranes at 3 cm for clear fluid. Labor progresses normally and she does get to complete. At this time with 3 pushes she pushes the head to the perineum. Posterior perineum is supported we have controlled delivery of infant's head over the intact perineum. Mouth and nares are bulb suctioned. There is a nuchal cord which is reduced. Patient this time does push several times without delivery of the shoulder. This time she is placed in Jennifer position and patient is able to easily deliver the rest the baby with gentle downward traction and maternal effort. This would be considered a mild shoulder dystocia. This is a vigorous viable female Apgars are 9 and 9 delivery time is 1942 hrs. Infant has spontaneous respirations and good cry and grossly appears normal. weight is 8 lbs. 9 oz. after delivery of the the umbilical cord is doubly clamped and cut and appears to be trivascular. The cord was allowed to completely stop pulsating prior to cutting cord. The placenta spontaneously delivered intact. Inspection of the perineum shows a superficial left lower labia abrasion which is reapproximated with 3-0 Vicryl usual fashion. Excellent reapproximation is noted. Estimated blood loss is 100 mL. There are no complications. All counts are correct 3. Infant and mother stable delivery room.
[2018-04-23] MEDS: SENNOSIDES-DOCUSATE SODIUM 1 EACH TAB PO SCH (20:53)
[2018-04-23] MEDS: IBUPROFEN 600 MG TAB PO PRN (20:53)
[2018-04-24] MEDS: IBUPROFEN 600 MG TAB PO PRN ×3 (03:44→21:57)
--- NOTE | 2018-04-24 06:59 | P.PNOBGVD ---
Subjective - Subjective Patient reports: Reports appetite normal, Reports voiding normally, Reports pain well controlled, Reports ambulating normally : doing well Objective - Latest Vital Signs Latest vital signs: Vital Signs Temp Pulse Resp BP 04/24/18 03:45 98.1 F 84 14 117/69 04/23/18 23:35 97.9 F 104 H 16 122/69 04/23/18 21:50 80 16 125/76 04/23/18 21:20 98.9 F 81 16 117/60 04/23/18 20:50 97.9 F 98 16 127/72 04/23/18 20:35 93 16 120/66 04/23/18 20:20 101 H 16 124/68 04/23/18 20:05 97.5 F L 100 16 126/61 04/23/18 19:50 96.9 F L 104 H 16 130/64 04/23/18 13:36 98.0 F 92 18 120/85 04/23/18 11:53 98.0 F 92 18 120/85 Intake and Output 04/23/18 04/23/18 04/24/18 14:59 22:59 06:59 Intake Total 1000 600 Output Total 100 Balance 900 600 Intake: Intake, IV Titration 1000 600 Amount Lactated Ringers 1,000 ml 1000 @ 125 mls/hr IV .Q8H REYNA Rx#:[id number] Oxytocin 20 Units/1000 ml 600 Ns 1,000 ml @ Per Protocol IV .Q0M REYNA Rx#: [id number] Output: Emesis 100 Other: # Voids 3 Weight 76.204 kg - Exam Lungs: bilateral: normal Chest: Normal S1, Normal S2 Extremities: Present: normal Abdomen: Present: normal appearance, soft Uterus: Present: normal, firm - Labs Labs: Abnormal Lab Results - Last 24 Hours (Table) 04/23/18 Range/Units 12:46 WBC 11.0 H (3.8-10.6) k/uL Neutrophils # 8.2 H (1.3-7.7) k/uL Assessment and Plan Assessment: day #1. Patient is resting without complaints. Vital signs are stable she is afebrile. Uterus is firm nontender she's having normal lochia. My impression is a normal course. Plan is to continue routine care and discharge home tomorrow (1) Post term at 41 weeks gestation Current Visit: Yes Status: Acute Code(s): O48.0 - POST-TERM ; Z3A.41 - 41 WEEKS GESTATION OF SNOMED Code(s): 470891415
[2018-04-24] MEDS: SENNOSIDES-DOCUSATE SODIUM 1 EACH TAB PO SCH ×2 (08:56→19:40)
--- NOTE | 2018-04-25 06:16 | P.PNOBGVD ---
Subjective - Subjective Patient reports: Reports appetite normal, Reports voiding normally, Reports pain well controlled, Reports ambulating normally : doing well Objective - Latest Vital Signs Latest vital signs: Vital Signs Temp Pulse Resp BP 04/24/18 23:58 97.9 F 67 16 96/52 04/24/18 16:00 97.9 F 101 H 20 123/75 04/24/18 12:00 98.1 F 93 16 116/77 04/24/18 08:00 97.9 F 76 16 102/62 Intake and Output 04/24/18 04/24/18 04/25/18 14:59 22:59 06:59 Other: # Voids 1 1 - Exam Lungs: bilateral: normal Chest: Normal S1, Normal S2 Extremities: Present: normal Abdomen: Present: normal appearance, soft Uterus: Present: normal, firm Assessment and Plan Assessment: day #2. Patient is resting without complaints wishes to go home. Vital signs are stable she's afebrile. Uterus is firm nontender and she is having normal lochia. I impression is a normal course. Plan is to continue routine care discharge home later today. (1) Post term at 41 weeks gestation Current Visit: Yes Status: Acute Code(s): O48.0 - POST-TERM ; Z3A.41 - 41 WEEKS GESTATION OF SNOMED Code(s): 558970852
--- NOTE | 2018-04-25 06:25 | P.DS ---
Providers Date of admission: 04/23/18 12:26 Expected date of discharge: 04/25/18 Attending physician: Raghav Kennedy Primary care physician: Stated None - Discharge Diagnosis(es) (1) Post term at 41 weeks gestation Current Visit: Yes Status: Acute Hospital Course: Please see dictated H&P for intimate details of this patient's admission. Brief summary this is a pleasant 32-year-old 5 para 3 female 41-1/2 weeks gestation who is admitted to labor and delivery in early labor. Patient was on have a vaginal delivery viable female infant. Please see dictated delivery note. day #2 patient's felt be stable for discharge home follow up with me in 6 weeks. Procedures: Normal spontaneous vaginal delivery Patient Condition at Discharge: Good Plan - Discharge Summary New Discharge Prescriptions: New Ibuprofen [Motrin] 600 mg PO Q6HR PRN #40 tab PRN Reason: Mild Pain Or Fever >= 100.5 No Action Vit 14/Iron Fum/Folic [Completenate Tablet Chew] 1 tab PO DAILY Calcium Carbonate [Tums] 500 mg PO TID Discharge Medication List Vit 14/Iron Fum/Folic [Completenate Tablet Chew] 1 tab PO DAILY [History] Calcium Carbonate [Tums] 500 mg PO TID 06/29/16 [History] Ibuprofen [Motrin] 600 mg PO Q6HR PRN #40 tab 04/25/18 [Rx] Follow up Appointment(s)/Referral(s): Raghav Kennedy MD [STAFF PHYSICIAN] - 6 Weeks Patient Instructions/Handouts: Vaginal Delivery (DC) Activity/Diet/Wound Care/Special Instructions: No intercourse or anything per vagina for 6 weeks. Please call if any fever, chills, excessive vaginal bleeding, and/or abdominal pain. Discharge Disposition: HOME SELF-CARE
[2018-04-25 08:10] VITALS: BP 121/78; PULSE 82; RESP 14; TEMP 97.5
[2018-04-25] MEDS: IBUPROFEN 600 MG TAB PO PRN (08:18)
[2018-04-25] MEDS: SENNOSIDES-DOCUSATE SODIUM 1 EACH TAB PO SCH (09:16)
== END 2018-04-25 12:45 | disposition home or self-care (01) | DRG 807 ==
LOC: FBPOP 11:40 → 4FBP 12:26
PROVIDERS: ADMIT Obstetrics & Gynecology; ATTEND Obstetrics & Gynecology
PROC: 10907ZC Drainage of Amniotic Fluid, Therapeutic from Products of Conception, Via Natural or Artificial Opening (ICD-10-PCS; principal; 2018-04-23)
PROC: 0UQMXZZ Repair Vulva, External Approach (ICD-10-PCS; principal; 2018-04-23)
PROC: 10E0XZZ Delivery of Products of Conception, External Approach (ICD-10-PCS; principal; 2018-04-23)
DX: O48.0 Post-term pregnancy (principal); Z37.0 Single live birth; Z3A.41 41 weeks gestation of pregnancy; O76 Abnormality in fetal heart rate and rhythm complicating labor and delivery; Z91.041 Radiographic dye allergy status; Z91.013 Allergy to seafood; O66.0 Obstructed labor due to shoulder dystocia; O69.81X0 Labor and delivery complicated by cord around neck, without compression, not applicable or unspecified; S30.814A Abrasion of vagina and vulva, initial encounter; Z82.49 Family history of ischemic heart disease and other diseases of the circulatory system
CPT/HCPCS: 59025; 85025; 85461; 86850; 86900; 86901; 99213

== ENCOUNTER → 2021-04-21 | Outpatient (CLI) | payer MEDICAID ==
--- NOTE | 2021-04-21 10:54 | US ---
EXAMINATION TYPE: OB transvaginal DATE OF EXAM: 04/21/2021 10:27 AM COMPARISON: NONE CLINICAL HISTORY: R10.2 PELVIC PAIN, N93.9 ABN VAGINAL BLEEDING. Patient having left sided pain before . EXAM PERFORMED: Transvaginal (TV) EXAM MEASUREMENTS: GESTATIONAL AGE / DATING Physician Established: Not yet established Dates by LMP: 03/13/2021 (5 weeks/6 days) EDC: 12/18/2021 Dates by First Scan: No previous this is first scan Dates by Current Scan for: (6 weeks/1 days) EDC: 12/14/2021 MATERNAL ANATOMY Uterus: 8.1x6.1x5.4cm Right Ovary: 3.9x1.9x1.3cm- inf follicle 1.1x1.1x1.1cm Left Ovary: 3.2x2.4x3.2 Post CDS / Adnexa: Left paraovarian cyst 1.5x1.2x1.1cm Vessels in the left adnexa prominent. Presence of free fluid: Right adnexa Presence of corpus luteal cyst: Left ovary- 2.6x2.4x2.1cm Presence of subchorionic bleed: No GESTATION / SURVEY CRL: 0.4 (6 weeks/1 days) Yolk Sac (normal less than 6mm): 3mm Heart Rate: 103 bpm Rhythm: Normal IUP: Viable IUP Date of LMP: 03/13/2021 Beta HcG (if available): Not available at this time IMPRESSION: Single viable intrauterine . MTDD
== END | disposition home or self-care (01) ==
LOC: RADUSWWP 10:02
PROVIDERS: ATTEND Obstetrics & Gynecology
DX: O26.891 Other specified pregnancy related conditions, first trimester (principal); R10.2 Pelvic and perineal pain; Z3A.01 Less than 8 weeks gestation of pregnancy
CPT/HCPCS: 76801; 76817